=== PATIENT | female | born 1940 | race Caucasian/White ===

== ENCOUNTER → 2017-03-15 | Outpatient (CLI) | payer MEDICARE ==
[~2017-03-15] MED LIST: ATIVAN1 MG PO; CARVEDILOL6.25 MG PO; COUMADIN1 M1 PO; DIGOXIN0.125 MG PO; DILTIAZEM CD120 MG PO; DILTIAZEM CD240 MG PO; HYZAAR 50/12.5M1 TAB PO; LODINE 400MG400 MG PO; METFORMIN500 MG PO; MIRAPEX0.125 M1 PO; SIMVASTATIN10 MG PO; TRAMADOL HCL50 MG PO; WARFARIN SOD2 MG PO; ZOLOFT50 MG PO
== END | disposition home or self-care (01) ==
LOC: RAD 13:03
DX: Z01.818 Encounter for other preprocedural examination (principal)

== ENCOUNTER → 2017-06-08 | Outpatient (CLI) | payer MEDICARE ==
[2017-06-08 10:53] LABS: BASO % 0.5 % (0.0-1.0); EOS # 0.2 10*3/uL (0.0-0.4); HEMATOCRIT 43.5 % (37.0-47.0); HEMOGLOBIN 13.7 g/dl (12.0-16.0); LYMPH # 1.2 10*3/uL (1.3-4.4); LYMPH % 21.4 % (27.0-41.0); MEAN CELL VOLUME 91.8 fl (81.0-99.0); MEAN CORPUSCULAR HGB 28.9 pg (27.0-31.0); MEAN CORPUSCULAR HGB CONC 31.5 g/dl (33.0-37.0); MEAN PLATELET VOLUME 9.9 fl (9.6-12.3); MONO # 0.5 10*3/uL (0.1-1.0); MONO % 8.4 % (3.0-9.0); NEUT # 3.7 10*3/uL (2.3-7.9); NEUT % 66.3 % (47.0-73.0); PLATELET COUNT AUTOMATED 169 10*3/uL (130-400); RED BLOOD COUNT 4.74 10*6/uL (4.10-5.10); RED CELL DISTRI WIDTH 13.9 % (0-14.5); WHITE BLOOD COUNT 5.6 10*3/uL (4.8-10.8)
[2017-06-08 11:25] LABS: INTERNATIONAL NORM RATIO 2.2 (2.0-3.5); PROTHROMBIN TIME 24.7 SECONDS (9.0-12.4)
[2017-06-08 11:28] LABS: ALBUMIN 4.3 gm/dl (3.1-4.5); BILIRUBIN, TOTAL 0.4 mg/dl (0.2-1.0); BUN 24 mg/dl (7-24); CARBON DIOXIDE 34 mmol/L (21-32); CHLORIDE 101 mmol/L (98-107); CHOLESTEROL 156 mg/dL (<200); EST GLOM FILT AFRICAN AMERICAN > 60 ml/min; FREE THYROXIN INDEX/T7 3.4 (1.5-5.4); GLUCOSE 108 mg/dL (65-99); POTASSIUM 4.2 mmol/L (3.5-5.1); SGOT/AST 16 IU/L (3-35); SGPT/ALT 24 U/L (12-78); SODIUM 138 mmol/L (136-145); T3 UPTAKE 32 % (31-39); THYROXINE (T4) TOTAL 10.9 ug/dl (4.8-13.9); TOTAL PROTEIN 7.4 gm/dL (6.4-8.2); TRIGLYCERIDES 68 mg/dl (<150); VLDL CHOLESTEROL 14 mg/dL (6-40)
[2017-06-08 11:34] LABS: ALKALINE PHOSPHATASE 66 U/L (45-117); HDL CHOLESTEROL 87 mg/dl (40-60); LDL CHOLESTEROL 55 mg/dL (9-159)
== END | disposition home or self-care (01) ==
LOC: LAB 10:13
PROVIDERS: Internal Medicine
DX: E11.65 Type 2 diabetes mellitus with hyperglycemia (principal); I10 Essential (primary) hypertension; I48.91 Unspecified atrial fibrillation; E78.2 Mixed hyperlipidemia

== ENCOUNTER → 2017-06-30 | Outpatient (CLI) | payer MEDICARE | END | disposition home or self-care (01) | LOC: LAB 14:07 | PROVIDERS: Internal Medicine | DX: I48.91 Unspecified atrial fibrillation (principal); E55.9 Vitamin D deficiency, unspecified ==

== ENCOUNTER → 2018-07-12 | Outpatient (CLI) | payer MEDICARE | END | disposition home or self-care (01) | LOC: MAMMO 04:10 | DX: Z12.31 Encounter for screening mammogram for malignant neoplasm of breast (principal) ==

== ENCOUNTER → 2018-09-28 | Outpatient (CLI) | payer MEDICARE | END | disposition home or self-care (01) | LOC: RAD 11:03 | DX: M25.511 Pain in right shoulder (principal) ==

== ENCOUNTER → 2021-03-20 | Outpatient (CLI) | payer MEDICARE | END | disposition home or self-care (01) | LOC: RAD 10:37 | PROVIDERS: ATTEND Internal Medicine | DX: M11.262 Other chondrocalcinosis, left knee (principal) ==

== ENCOUNTER 2023-10-28 13:05 | Emergency (ER) | payer MEDICARE ==
[~2023-10-28] VITALS: Ht 167.6 cm; Wt 49.9 kg
[~2023-10-28 13:05] MED LIST changes: +CEFUROXIME AXE250 MG PO; +DILT-XR240 MG PO; +DONEPEZIL HCL10 MG PO; +ELIQUIS2.5 M1 PO; +FEROSUL325 M1 PO; +LOSARTAN POTASS50 M1 PO; +METFORMIN HYDR500 MG PO; -METFORMIN500 MG PO; +METOPROLOL SUCC50 M1 PO; +OMEPRAZOLE MAGN20 MG PO; +POTASSIUM CHLOR8 ME1 PO; +PRAMIPEXOLE D0.25 MG PO; +TEMAZEPAM15 M1 PO
== END 2023-10-28 15:49 | disposition home or self-care (01) ==
LOC: ED 13:05
DX: M25.562 Pain in left knee (principal); I10 Essential (primary) hypertension; F41.9 Anxiety disorder, unspecified; I48.91 Unspecified atrial fibrillation; E78.00 Pure hypercholesterolemia, unspecified; F03.90 Unspecified dementia, unspecified severity, without behavioral disturbance, psychotic disturbance, mood disturbance, and anxiety; Z98.890 Other specified postprocedural states

== ENCOUNTER → 2024-06-04 | Outpatient (CLI) | payer MEDICARE | END | disposition home or self-care (01) | LOC: RAD 02:09 | PROVIDERS: ATTEND Internal Medicine | DX: M81.0 Age-related osteoporosis without current pathological fracture (principal); E55.9 Vitamin D deficiency, unspecified; N95.0 Postmenopausal bleeding; Z96.643 Presence of artificial hip joint, bilateral; Z78.0 Asymptomatic menopausal state ==